=== PATIENT | female | born 1995 | race Caucasian/White ===

== ENCOUNTER → 2020-04-09 | Outpatient (CLI) | payer MEDICAID, SELFPAY ==
[2020-04-09 11:39] VITALS: BMI 35.9
[2020-04-14 14:14] LABS: HPV Reflexed? NOT INDICATED
== END | disposition home or self-care (01) ==
LOC: LABSPEC 14:55
PROVIDERS: Nurse Practitioner Women's Health; PCP Family Medicine; Visit Provider Obstetrics & Gynecology
DX: Z12.4 Encounter for screening for malignant neoplasm of cervix (principal)
CPT/HCPCS: 88175; G0145